=== PATIENT | male | born 1955 | race Caucasian/White ===

== ENCOUNTER 2019-02-12 06:13 | Inpatient (IN) ==
[2019-02-12] MEDS ORDERED: CeFAZolin Syr 2,000MG/20 ML 2,000 MG/20 ML SYRINGE IVPB ONE (06:36)
[2019-02-12] MEDS ORDERED: Ringers Solution, Lactated 1,000 ML IVC SCH (06:45)
[2019-02-12] MEDS ORDERED: *HR* HYDROmorphone (PF) 1 MG/ML SYRINGE IVP PRN (06:53)
[2019-02-12] MEDS ORDERED: *HR* OxyCODONE Immed Rel 5 MG TABLET PO PRN (06:53)
[2019-02-12] MEDS ORDERED: Ethanol\\Acetic Acid\\Na Ace\\Ben 1,000 ML IRRIG.SOLN IR ONE (07:05)
[2019-02-12] MEDS ORDERED: *HR* Midazolam HCl 2 MG/2 ML VIAL ONE (07:24)
[2019-02-12] MEDS ORDERED: *HR* FentaNYL (PF) 100 MCG/2 ML VIAL ONE (07:24)
[2019-02-12] MEDS ORDERED: *HR* Succinylcholine 200 MG/10 ML VIAL IVP ONE (07:24)
[2019-02-12] MEDS ORDERED: Ondansetron 4 MG/2 ML VIAL ONE (07:24)
[2019-02-12] MEDS ORDERED: Dexamethasone 4 MG/ML VIAL ONE (07:24)
[2019-02-12] MEDS ORDERED: Lidocaine -MPF 2% 2 ML VIAL ONE (07:24)
[2019-02-12] MEDS ORDERED: *HR* Propofol 200 MG/20 ML VIAL IVP ONE (07:25)
[2019-02-12] MEDS ORDERED: Lidocaine HCL 4 ML Topical Solution (Laryng-O-Jet Kit Sterile Pak) TP ONE (07:26)
[2019-02-12] MEDS ORDERED: Ropivacaine/PF 0.5% 30 ML VIAL ONE (07:35)
[2019-02-12] MEDS ORDERED: ROPIVACAINE/PF/NS 0.25% 1 EACH SYRINGE INTRAART ONE (07:35)
[2019-02-12] MEDS ORDERED: EPHEDrine 50 MG/ML VIAL ONE (07:59)
[2019-02-12 09:29] LABS: Hematocrit 35.4 % (37.5-50.1); Hemoglobin 12.1 g/dL (12.9-16.9)
[2019-02-12] MEDS ORDERED: traMADol 50 MG TABLET PO PRN (10:37)
[2019-02-12] MEDS ORDERED: Ondansetron 4 MG/2 ML VIAL IVP PRN (10:37)
[2019-02-12] MEDS ORDERED: Temazepam 15 MG CAPSULE PO PRN (10:37)
[2019-02-12] MEDS ORDERED: Sennosides 8.6 MG TABLET PO PRN (10:37)
[2019-02-12] MEDS ORDERED: MOM Conc 10 ML UD.LIQ PO PRN (10:37)
[2019-02-12] MEDS ORDERED: *HR* OxyCODONE/APAP 5/325 TABLET PO PRN (10:37)
[2019-02-12] MEDS ORDERED: *HR* LORazepam 2 MG/ML VIAL IVP PRN ×3 (10:45)
[2019-02-12] MEDS: Propranolol LA (24 HR) 80 MG CAP.SA.24H PO SCH ×2 (11:11→20:08)
[2019-02-12] MEDS: Lisinopril 20 MG TABLET PO SCH ×2 (11:13→20:08)
[2019-02-12] MEDS: amLODIPine 5 MG TABLET PO SCH (11:13)
[2019-02-12] MEDS: Aspirin Enteric Coated 81 MG Tablet PO SCH (17:03)
[2019-02-12] MEDS: *HR* Enoxaparin 30 MG/0.3 ML SYRINGE SQ SCH (17:04)
[2019-02-12] MEDS ORDERED: *HR* Enoxaparin 30 MG/0.3 ML SYRINGE SQ SCH (18:00)
[2019-02-12] MEDS: Ringers Solution, Lactated 1,000 ML IVC SCH (20:10)
[2019-02-13] MEDS: Ringers Solution, Lactated 1,000 ML IVC SCH (00:17)
[2019-02-13 02:07] LABS: Hematocrit 32.5 % (37.5-50.1); Hemoglobin 11.2 g/dL (12.9-16.9)
[2019-02-13 02:26] LABS: BUN/Creatinine Ratio 8 (6-26); Blood Urea Nitrogen 6 mg/dL (8-23); Calcium 9.5 mg/dL (8.6-10.3); Carbon Dioxide 24 mEq/L (23-29); Chloride 98 mEq/L (98-107); Glucose 133 mg/dL (70-105); Osmolality,Calculated 266 (280-300); Sodium 128 mEq/L (136-145); eGFR For African Americans > 60 (> 60); eGFR For Non-African Americans > 60 (> 60)
[2019-02-13] MEDS: *HR* Enoxaparin 30 MG/0.3 ML SYRINGE SQ SCH (04:19)
[2019-02-13] MEDS: *HR* OxyCODONE Immed Rel 5 MG TABLET PO PRN ×2 (07:18→13:24)
[2019-02-13] MEDS: Propranolol LA (24 HR) 80 MG CAP.SA.24H PO SCH (09:32)
[2019-02-13] MEDS: Aspirin Enteric Coated 81 MG Tablet PO SCH (09:32)
[2019-02-13] MEDS: amLODIPine 5 MG TABLET PO SCH (09:33)
[2019-02-13] MEDS: Lisinopril 20 MG TABLET PO SCH (09:33)
[2019-02-13 11:55] VITALS: BP 136/88
== END 2019-02-13 13:30 | disposition home health service (06) | DRG 483 ==
LOC: SAMDAY 06:13 → 3NENU 09:37
PROVIDERS: ADMIT Orthopaedic Surgery; ATTEND Orthopaedic Surgery

== ENCOUNTER 2019-05-08 23:42 | Inpatient (IN) ==
[2019-05-09 01:12] LABS: Basophils # 0.1 K/mcL (0.0-0.2); Basophils % 1.2 %; Eosinophils # 0.1 K/mcL (0.0-0.6); Eosinophils % 2.2 %; Hematocrit 38.6 % (37.5-50.1); Hemoglobin 13.5 g/dL (12.9-16.9); Immature Granulocytes % 0.4 % (0-4); Lymphocytes # 1.1 K/mcL (0.6-4.6); Lymphocytes % 22.9 %; Mean Corpuscular Hemoglobin 32.9 pg (28.0-33.3); Mean Corpuscular Volume 94.1 fL (83.0-100.0); Monocytes # 0.6 K/mcL (0.0-1.3); Neutrophils # 3.1 K/mcL (1.6-8.9); Platelet Count 316 K/mcL (140-400); Red Cell Distribution Width 12.4 % (11.5-14.5); Segmented Neutrophils % 62.3 %
[2019-05-09 01:28] LABS: BUN/Creatinine Ratio 13 (6-26); Blood Urea Nitrogen 10 mg/dL (8-23); Calcium 9.9 mg/dL (8.6-10.3); Carbon Dioxide 25 mEq/L (23-29); Chloride 97 mEq/L (98-107); Glucose 92 mg/dL (70-105); Osmolality,Calculated 267 (280-300); Potassium 4.4 mEq/L (3.5-5.1); Sodium 129 mEq/L (136-145); eGFR For African Americans > 60 (> 60); eGFR For Non-African Americans > 60 (> 60)
[2019-05-09 01:39] LABS: Troponin I 0.58 ng/mL (< 0.04)
[2019-05-09] MEDS ORDERED: *HR* Heparin 5,000 UNIT/ML VIAL IVP PRN ×2 (01:41)
[2019-05-09] MEDS ORDERED: *HR* Heparin 5,000 UNIT/ML VIAL IVP ONE (01:41)
[2019-05-09 01:53] LABS: Hematocrit 38.9 % (37.5-50.1); Hemoglobin 13.6 g/dL (12.9-16.9); Mean Corpuscular Hemoglobin 33.1 pg (28.0-33.3); Mean Corpuscular Volume 94.6 fL (83.0-100.0); Mean Platelet Volume 9.5 fL (9.4-12.4); Platelet Count 328 K/mcL (140-400); Red Blood Count 4.11 M/mcL (4.19-5.50); Red Cell Distribution Width 12.3 % (11.5-14.5); White Blood Count 4.9 K/mcL (4.3-11.1)
[2019-05-09 02:20] LABS: Heparin anti-factor XA UFH 0.04 IU/mL (0.30-0.70); Prothrombin Time 10.8 Seconds (9.4-12.1)
[2019-05-09] MEDS ORDERED: *HR* Ticagrelor 90 MG TABLET PO ONE (02:20)
[2019-05-09 02:23] LABS: Activated Partial Thrombo Time 34.5 Seconds (26.0-36.0)
[2019-05-09] MEDS: Heparin 25,000 UNIT/250 ML D5W 25,000 UNIT/250 ML IV.SOLN IVC SCH (02:57)
[2019-05-09] MEDS: Nitroglycerin 0.4 MG TAB.SUBL SL SCH (03:56)
[2019-05-09] MEDS ORDERED: Naloxone 0.4 MG/ML INJ IVP PRN (04:27)
[2019-05-09] MEDS ORDERED: Ondansetron ODT 4 MG TAB.RAPDIS SL PRN (04:27)
[2019-05-09] MEDS ORDERED: Acetaminophen 325 MG TABLET PO PRN (04:27)
[2019-05-09] MEDS: Aspirin Enteric Coated 81 MG Tablet PO SCH (07:51)
[2019-05-09] MEDS: amLODIPine 5 MG TABLET PO SCH ×2 (07:53→08:04)
[2019-05-09] MEDS ORDERED: Aspirin 81 MG TAB.CHEW PO SCH (09:00)
[2019-05-09] MEDS ORDERED: Propranolol LA (24 HR) 80 MG CAP.SA.24H PO SCH (09:00)
[2019-05-09] MEDS ORDERED: Lisinopril 20 MG TABLET PO SCH (09:00)
[2019-05-09 10:11] LABS: Chol/HDL Ratio 3.8 (0-4.9); Magnesium 1.9 mg/dL (1.6-2.6); Phosphorous 3.8 mg/dL (2.7-4.5)
[2019-05-09] MEDS: carvediloL 6.25 MG TABLET PO SCH ×2 (12:10→17:34)
[2019-05-10 00:46] LABS: Basophils # 0.1 K/mcL (0.0-0.2); Basophils % 1.2 %; Eosinophils # 0.1 K/mcL (0.0-0.6); Eosinophils % 2.6 %; Hematocrit 36.8 % (37.5-50.1); Hemoglobin 12.6 g/dL (12.9-16.9); Immature Granulocytes % 0.4 % (0-4); Lymphocytes # 1.6 K/mcL (0.6-4.6); Lymphocytes % 32.7 %; Mean Corpuscular HGB Conc 34.2 g/dL (31.6-35.5); Mean Corpuscular Hemoglobin 33.1 pg (28.0-33.3); Mean Corpuscular Volume 96.6 fL (83.0-100.0); Mean Platelet Volume 8.9 fL (9.4-12.4); Monocytes # 0.6 K/mcL (0.0-1.3); Monocytes % 12.4 %; Neutrophils # 2.5 K/mcL (1.6-8.9); Platelet Count 274 K/mcL (140-400); Red Blood Count 3.81 M/mcL (4.19-5.50); Red Cell Distribution Width 12.4 % (11.5-14.5); Segmented Neutrophils % 50.7 %
[2019-05-10 01:05] LABS: BUN/Creatinine Ratio 13 (6-26); Blood Urea Nitrogen 11 mg/dL (8-23); Calcium 9.7 mg/dL (8.6-10.3); Carbon Dioxide 23 mEq/L (23-29); Chloride 98 mEq/L (98-107); Glucose 108 mg/dL (70-105); Osmolality,Calculated 266 (280-300); Sodium 128 mEq/L (136-145); eGFR For African Americans > 60 (> 60); eGFR For Non-African Americans > 60 (> 60)
[2019-05-10] MEDS: Heparin 25,000 UNIT/250 ML D5W 25,000 UNIT/250 ML IV.SOLN IVC SCH (01:18)
[2019-05-10] MEDS ORDERED: 0.9 % Sodium Chloride 2,000 ML ONE (07:54)
[2019-05-10] MEDS ORDERED: Heparin 1,000 UNITS/500 mL 500 ML ONE (07:54)
[2019-05-10] MEDS ORDERED: Nitroglycerin 1,000 MCG/10 ML VIAL IV ONE (07:55)
[2019-05-10] MEDS ORDERED: ISOVUE-370 200 ML INFUS..BTL ONE ×2 (07:55→07:57)
[2019-05-10] MEDS ORDERED: *HR* Heparin 10,000 UNIT/10 ML VIAL ONE (07:55)
[2019-05-10] MEDS ORDERED: *HR* Midazolam HCl 2 MG/2 ML VIAL ONE (08:20)
[2019-05-10] MEDS: Aspirin Enteric Coated 81 MG Tablet PO SCH (08:24)
[2019-05-10] MEDS ORDERED: Verapamil 5 MG/2 ML VIAL ONE (08:37)
[2019-05-10] MEDS ORDERED: *HR* FentaNYL (PF) 100 MCG/2 ML VIAL ONE (08:42)
[2019-05-10] MEDS ORDERED: *HR* Ticagrelor 90 MG TABLET ONE (09:22)
[2019-05-10] MEDS: amLODIPine 5 MG TABLET PO SCH (12:34)
[2019-05-10] MEDS: carvediloL 6.25 MG TABLET PO SCH (17:27)
[2019-05-10] MEDS: *HR* Ticagrelor 90 MG TABLET PO SCH (20:28)
[2019-05-11 06:44] LABS: Eosinophils # 0.1 K/mcL (0.0-0.6); Eosinophils % 2.9 %; Hematocrit 37.4 % (37.5-50.1); Hemoglobin 12.8 g/dL (12.9-16.9); Immature Granulocytes % 0.2 % (0-4); Lymphocytes # 0.9 K/mcL (0.6-4.6); Mean Corpuscular HGB Conc 34.2 g/dL (31.6-35.5); Mean Corpuscular Hemoglobin 33.1 pg (28.0-33.3); Mean Corpuscular Volume 96.6 fL (83.0-100.0); Mean Platelet Volume 8.9 fL (9.4-12.4); Monocytes # 0.6 K/mcL (0.0-1.3); Monocytes % 13.7 %; Neutrophils # 2.5 K/mcL (1.6-8.9); Platelet Count 250 K/mcL (140-400); Red Blood Count 3.87 M/mcL (4.19-5.50); Red Cell Distribution Width 12.5 % (11.5-14.5); Segmented Neutrophils % 61.2 %; White Blood Count 4.1 K/mcL (4.3-11.1)
[2019-05-11 06:52] LABS: BUN/Creatinine Ratio 9 (6-26); Blood Urea Nitrogen 7 mg/dL (8-23); Calcium 9.9 mg/dL (8.6-10.3); Carbon Dioxide 25 mEq/L (23-29); Chloride 100 mEq/L (98-107); Glucose 105 mg/dL (70-105); Osmolality,Calculated 270 (280-300); Potassium 4.1 mEq/L (3.5-5.1); Sodium 131 mEq/L (136-145); eGFR For African Americans > 60 (> 60); eGFR For Non-African Americans > 60 (> 60)
[2019-05-11] MEDS: *HR* Ticagrelor 90 MG TABLET PO SCH (07:45)
[2019-05-11] MEDS: carvediloL 6.25 MG TABLET PO SCH (07:45)
[2019-05-11] MEDS: Aspirin Enteric Coated 81 MG Tablet PO SCH (07:45)
[2019-05-11] MEDS: amLODIPine 5 MG TABLET PO SCH (07:45)
[2019-05-11] MEDS ORDERED: Aspirin 81 MG TAB.CHEW PO SCH (09:00)
[2019-05-11] MEDS ORDERED: FLU Vac QV 19-20 (6Month+)/PF 0.5 ML SYRINGE IM ONE (10:48)
[2019-05-11 11:01] VITALS: BP 131/97
== END 2019-05-11 14:43 | disposition home or self-care (01) | DRG 247 ==
LOC: EMEROOARM 23:42 → CDU 23:42 → SUATTDRO 05-09 03:21 → CDU 05-09 03:45 → 2ANU 05-09 16:18
PROVIDERS: ADMIT Internal Medicine; ATTEND Internal Medicine

== ENCOUNTER 2020-12-19 18:32 | Inpatient (IN) ==
[2020-12-19 20:15] LABS: BUN/Creatinine Ratio 10 (6-26); Blood Urea Nitrogen 7 mg/dL (8-23); Calcium 9.6 mg/dL (8.6-10.3); Carbon Dioxide 25 mEq/L (23-29); Chloride 85 mEq/L (98-107); Glucose 104 mg/dL (70-105); Osmolality,Calculated 244 (280-300); Potassium 3.6 mEq/L (3.5-5.1); Sodium 118 mEq/L (136-145); eGFR For African Americans > 60 (> 60); eGFR For Non-African Americans > 60 (> 60)
[2020-12-19] MEDS ORDERED: 0.9 % Sodium Chloride 1,000 ML IV ONE (20:28)
[2020-12-19 20:49] LABS: Basophils % 0.4 %; Eosinophils # 0.1 K/mcL (0.0-0.6); Eosinophils % 1.8 %; Hematocrit 35.4 % (37.5-50.1); Hemoglobin 12.7 g/dL (12.9-16.9); Immature Granulocytes % 0.4 % (0-4); Lymphocytes # 1.2 K/mcL (0.6-4.6); Lymphocytes % 22.2 %; Mean Corpuscular HGB Conc 35.9 g/dL (31.6-35.5); Mean Corpuscular Hemoglobin 32.8 pg (28.0-33.3); Mean Corpuscular Volume 91.5 fL (83.0-100.0); Mean Platelet Volume 8.9 fL (9.4-12.4); Monocytes # 0.6 K/mcL (0.0-1.3); Monocytes % 11.2 %; Neutrophils # 3.5 K/mcL (1.6-8.9); Platelet Count 295 K/mcL (140-400); Red Blood Count 3.87 M/mcL (4.19-5.50); Red Cell Distribution Width 12.4 % (11.5-14.5); White Blood Count 5.4 K/mcL (4.3-11.1)
[2020-12-19 20:58] LABS: Bilirubin,Urine Negative (Negative); Blood,Urine Negative (Negative); Clarity,Urine Clear (Clear); Color,Urine Colorless (Yellow); Glucose,Urine (UA) Normal (Normal); Ketones,Urine Negative (Negative); Leukocyte Esterase,Urine Negative (Negative); Nitrite,Urine Negative (Negative); PH,Urine 6.5 pH Units (5.0-8.0); Protein,Urine Negative (Neg-Trace); Specific Gravity,Urine < 1.005 (1.010-1.025); Urobilinogen,Urine Normal (Normal)
[2020-12-19 21:02] LABS: Sodium, Urine 11.3 mEq/L
[2020-12-19] MEDS ORDERED: Naloxone 0.4 MG/ML INJ IVP PRN (22:20)
[2020-12-19] MEDS ORDERED: Ondansetron 4 MG/2 ML VIAL IVP PRN (22:20)
[2020-12-19 23:02] LABS: BUN/Creatinine Ratio 10 (6-26); Blood Urea Nitrogen 6 mg/dL (8-23); Calcium 9.2 mg/dL (8.6-10.3); Carbon Dioxide 23 mEq/L (23-29); Chloride 89 mEq/L (98-107); Glucose 85 mg/dL (70-105); Osmolality,Calculated 249 (280-300); Potassium 3.7 mEq/L (3.5-5.1); Sodium 121 mEq/L (136-145); eGFR For African Americans > 60 (> 60); eGFR For Non-African Americans > 60 (> 60)
[2020-12-19 23:16] LABS: Thyroid Stimulating Hormone 2.167 mcIU/mL (0.340-5.600)
[2020-12-20 03:36] LABS: Hematocrit 34.1 % (37.5-50.1); Hemoglobin 12.6 g/dL (12.9-16.9); Mean Corpuscular Hemoglobin 33.1 pg (28.0-33.3); Mean Corpuscular Volume 89.5 fL (83.0-100.0); Mean Platelet Volume 8.7 fL (9.4-12.4); Platelet Count 259 K/mcL (140-400); Red Blood Count 3.81 M/mcL (4.19-5.50); Red Cell Distribution Width 12.2 % (11.5-14.5); White Blood Count 4.4 K/mcL (4.3-11.1)
[2020-12-20 03:56] LABS: BUN/Creatinine Ratio 10 (6-26); Blood Urea Nitrogen 6 mg/dL (8-23); Calcium 9.4 mg/dL (8.6-10.3); Carbon Dioxide 22 mEq/L (23-29); Chloride 91 mEq/L (98-107); Glucose 90 mg/dL (70-105); Osmolality,Calculated 251 (280-300); Potassium 3.8 mEq/L (3.5-5.1); Sodium 122 mEq/L (136-145); eGFR For African Americans > 60 (> 60); eGFR For Non-African Americans > 60 (> 60)
[2020-12-20 04:56] LABS: Potassium,Urine 5.8 mEq/L
[2020-12-20 07:39] LABS: BUN/Creatinine Ratio 10 (6-26); Blood Urea Nitrogen 6 mg/dL (8-23); Calcium 9.5 mg/dL (8.6-10.3); Carbon Dioxide 25 mEq/L (23-29); Chloride 90 mEq/L (98-107); Glucose 123 mg/dL (70-105); Osmolality,Calculated 255 (280-300); Potassium 3.7 mEq/L (3.5-5.1); Sodium 123 mEq/L (136-145); eGFR For African Americans > 60 (> 60); eGFR For Non-African Americans > 60 (> 60)
[2020-12-20 08:00] LABS: BUN/Creatinine Ratio 9 (6-26); Blood Urea Nitrogen 6 mg/dL (8-23); Calcium 9.2 mg/dL (8.6-10.3); Carbon Dioxide 24 mEq/L (23-29); Chloride 92 mEq/L (98-107); Glucose 110 mg/dL (70-105); Osmolality,Calculated 254 (280-300); Potassium 3.6 mEq/L (3.5-5.1); Sodium 123 mEq/L (136-145); eGFR For African Americans > 60 (> 60); eGFR For Non-African Americans > 60 (> 60)
[2020-12-20 10:18] LABS: BUN/Creatinine Ratio 8 (6-26); Blood Urea Nitrogen 6 mg/dL (8-23); Calcium 9.2 mg/dL (8.6-10.3); Carbon Dioxide 24 mEq/L (23-29); Chloride 92 mEq/L (98-107); Glucose 116 mg/dL (70-105); Osmolality,Calculated 255 (280-300); Potassium 3.5 mEq/L (3.5-5.1); Sodium 123 mEq/L (136-145); eGFR For African Americans > 60 (> 60); eGFR For Non-African Americans > 60 (> 60)
[2020-12-20] MEDS: carvediloL 6.25 MG TABLET PO SCH (16:26)
[2020-12-20] MEDS: Primidone 50 MG TABLET PO SCH (20:03)
[2020-12-21 00:03] VITALS: O2SAT 100
[2020-12-21 07:25] VITALS: BP 150/97; PULSE 63; TEMP 97.8
[2020-12-21] MEDS: carvediloL 6.25 MG TABLET PO SCH (07:47)
[2020-12-21] MEDS: Primidone 50 MG TABLET PO SCH (07:48)
[2020-12-21 08:55] LABS: BUN/Creatinine Ratio 6 (6-26); Blood Urea Nitrogen 4 mg/dL (8-23); Calcium 9.9 mg/dL (8.6-10.3); Carbon Dioxide 25 mEq/L (23-29); Chloride 92 mEq/L (98-107); Glucose 109 mg/dL (70-105); Osmolality,Calculated 253 (280-300); Potassium 4.2 mEq/L (3.5-5.1); Sodium 123 mEq/L (136-145); eGFR For African Americans > 60 (> 60); eGFR For Non-African Americans > 60 (> 60)
[2020-12-21] MEDS ORDERED: Cyanocobalamin (B-12) 1,000 MCG TABLET PO SCH (09:00)
[2020-12-21] MEDS ORDERED: Aspirin Enteric Coated 81 MG Tablet PO SCH (09:00)
[2020-12-21] MEDS ORDERED: lisinopriL 10 MG TABLET PO SCH (09:00)
== END 2020-12-21 12:10 | disposition home or self-care (01) | DRG 641 ==
LOC: EMEROOARM 18:32 → 2NENU 18:32 → SUATTDRO 23:10 → OBSVTOIN 23:10 → 2NENU 12-20 00:06
PROVIDERS: ADMIT Student in an Organized Health Care Education/Training Program; ATTEND Internal Medicine